=== PATIENT | female | born 1990 | race Caucasian/White ===

== ENCOUNTER 2018-08-15 08:09 | Emergency (ER) | payer OTHER ==
[~2018-08-15] VITALS: Ht 154.9 cm; Wt 63.5 kg
[~2018-08-15 08:09] MED LIST: ACID REDUCER 1150 MG PO; ALBU90OI INH; BCP'S; BUTACE PO; CIPR500 PO; CLIN300 PO; CLON.1 PO; CYCL10 PO; DIPATR PO; HYDACE5 PO; HYDACE5325 PO; IBUP600 PO; IBUP800 PO; NAPR500 PO; PHENA200 PO; PRENATAL TABLE1 EAC1 PO; PROM25 PO; RISP1 PO; RXHYD5325 PO; RXPHEN200 PO; SULTRIDS PO; TRAM50 PO; Tylenol325 MG PO; Verotin-Gr Cap1 EACH; Verotin-Gr Cap1 EACH PO; Zithromax250 MG PO; Zofran Odt4 MG SL; [UNRECOGNIZED DRUG - REMARK]
[2018-08-15] MEDS ORDERED: BUPRENORPHINE1 EAC2 (08:36)
[2018-08-15 09:34] LABS: Source, Urine Clean Catch
[2018-08-15 09:44] LABS: Bilirubin, Urine Neg (Neg); Blood, Urine 1+ (Neg); Glucose Qualitative, Urine Neg (Neg); Ketones, Urine 1+ (Neg); Leukocyte Esterase, Urine 3+ (Neg); Nitrite, Urine Neg (Neg); Protein, Urine 2+ (Neg); Specific Gravity, Urine 1.025 (1.003-1.022); Urobilinogen, Urine 1+ (Normal)
[2018-08-15 09:58] LABS: Alanine Aminotransfer (ALT/SGP 11 U/L (12-78); Albumin, Blood 3.5 g/dL (3.4-5.0); Alk Phos 59 U/L (50-136); Anion Gap 8 mmol/L (6-16); Aspartate Aminotrans (AST/SGOT 11 U/L (12-37); BASOPHILS ABSOLUTE AUTO 0.04 K/mm3 (0.00-0.23); BASOPHILS PERCENT AUTO 1 % (0-2); Bilirubin, Total 0.5 mg/dL (0.1-1.0); Blood Urea Nitrogen 9 mg/dL (8-24); Bun/Creatinine Ratio 15.1 (12.0-20.0); CO2, Blood 28 mmol/L (21-32); Calcium, Blood 8.3 mg/dL (8.5-10.1); Chloride, Blood 105 mmol/L (98-108); EOSINOPHILS ABSOLUTE AUTO 0.11 K/mm3 (0.00-0.68); EOSINOPHILS PERCENT AUTO 2 % (0-6); Globulin, Blood 3.5 g/dL (2.2-4.0); Glomerular Filtration Rate >60 (60-); Glucose, Blood 78 mg/dL (70-99); Hematocrit 32.4 % (33.0-51.0); Hemoglobin 10.8 g/dL (11.5-16.0); IMMATURE GRAN ABSOLUTE AUTO 0.02 K/mm3 (0.00-0.10); IMMATURE GRAN PERCENT AUTO 0 % (0-1); LYMPHOCYTES ABSOLUTE AUTO 2.32 K/mm3 (0.84-5.20); LYMPHOCYTES PERCENT AUTO 37 % (21-46); MONOCYTES ABSOLUTE AUTO 0.62 K/mm3 (0.16-1.47); MONOCYTES PERCENT AUTO 10 % (4-13); Mean Corpuscular HGB Conc 33.3 g/dL (31.5-36.5); Mean Corpuscular Volume 84 fL (80-100); Mean Platelet Volume 9.4 fL (9.1-12.4); NEUTROPHILS ABSOLUTE AUTO 3.22 K/mm3 (1.96-9.15); NEUTROPHILS PERCENT AUTO 51 % (41-73); Platelet Count 249 K/mm3 (150-400); Potassium, Blood 3.1 mmol/L (3.5-5.5); RDW Coefficient Variation 13.5 % (11.7-14.2); RDW Standard Deviation 41.4 fL (35.1-46.3); Red Blood Cell Count 3.86 M/mm3 (3.80-5.20); Sodium, Blood 141 mmol/L (136-145); White Blood Cell Count 6.33 K/mm3 (4.00-11.30)
[2018-08-15 10:02] LABS: Appearance, Urine Hazy (Clear); Color, Urine Yellow (P-Yellow)
[2018-08-15 10:03] LABS: Red Blood Cells, Urine 0-2 /hpf (0-2); White Blood Cells, Urine 50-100 /hpf (0-5)
[2018-08-15 10:04] LABS: Bacteria Mod /hpf; Mucus Mod (0-Heavy); Squamous Epithelial Cells Many /hpf (Few)
[2018-08-15] MEDS ORDERED: Macrobid 100 M100 MG PO (10:54)
[2018-08-15] MEDS ORDERED: Zofran4 MG PO (10:54)
[2018-08-15] MEDS ORDERED: Klor-Con M1010 MEQ PO (10:54)
== END 2018-08-15 11:26 | disposition home or self-care (01) ==
LOC: ER 08:09
PROVIDERS: Physician Assistant
DX: E87.6 Hypokalemia (principal); N39.0 Urinary tract infection, site not specified; R19.7 Diarrhea, unspecified; F32.9 Major depressive disorder, single episode, unspecified; J45.909 Unspecified asthma, uncomplicated; Z87.891 Personal history of nicotine dependence
CPT/HCPCS: 36415; 74176; 80053; 81001; 81025; 83690; 85025; 87086; 96361; 96374; 96375; 99284-25; J1885; J2405; J7030

== ENCOUNTER 2019-06-15 19:50 | Emergency (ER) | payer OTHER ==
[~2019-06-15 19:50] MED LIST changes: +BUPRENORPHINE1 EAC2; +Klor-Con M1010 MEQ PO; +Macrobid 100 M100 MG PO; +Zofran4 MG PO
== END 2019-06-15 21:26 | disposition left against medical advice (07) ==
LOC: ER 19:50
DX: Z53.21 Procedure and treatment not carried out due to patient leaving prior to being seen by health care provider (principal)

== ENCOUNTER → 2019-12-22 | Outpatient (CLI) | payer OTHER ==
[~2019-12-22] MED LIST changes: +IBUP400 PO; +Veetids 500500 MG PO
[2019-12-23 09:09] LABS: Candida species (DNA Probe) Negative (NEGATIVE); G. vaginalis (DNA Probe) Positive (NEGATIVE); T. vaginalis (DNA Probe) Positive (NEGATIVE)
== END | disposition home or self-care (01) ==
LOC: LAB SHORT 15:05 → LAB 15:05
PROVIDERS: Family Medicine
DX: L29.8 Other pruritus (principal); R30.9 Painful micturition, unspecified
CPT/HCPCS: 87086; 87480; 87510; 87660

== ENCOUNTER 2020-11-18 14:18 | Emergency (ER) | payer OTHER ==
[~2020-11-18] VITALS: Ht 154.9 cm; Wt 63.5 kg
[2020-11-18] MEDS ORDERED: Triamcinolone A15 G3 TOP (15:09)
== END 2020-11-18 15:19 | disposition home or self-care (01) ==
LOC: ER 14:18
DX: L20.9 Atopic dermatitis, unspecified (principal); Z87.891 Personal history of nicotine dependence
CPT/HCPCS: 99282

== ENCOUNTER 2021-03-02 19:26 | Emergency (ER) | payer OTHER ==
[~2021-03-02] VITALS: Ht 154.9 cm; Wt 63.5 kg
[~2021-03-02 19:26] MED LIST changes: +Triamcinolone A15 G3 TOP
[2021-03-02 20:25] LABS: Source, Urine Clean Catch
[2021-03-02 20:29] LABS: Appearance, Urine Hazy (Clear); Bilirubin, Urine Neg (Neg); Blood, Urine 2+ (Neg); Color, Urine Yellow (P-Yellow); Glucose Qualitative, Urine Neg (Neg); Ketones, Urine Neg (Neg); Leukocyte Esterase, Urine 3+ (Neg); Nitrite, Urine Pos (Neg); Protein, Urine 2+ (Neg); Urobilinogen, Urine NORM (Normal)
[2021-03-02 20:42] LABS: White Blood Cells, Urine TNTC /hpf (0-5)
[2021-03-02 20:43] LABS: Bacteria Many /hpf; Calcium Oxalate Crystals Few /hpf; Red Blood Cells, Urine 0-2 /hpf (0-2); Squamous Epithelial Cells Few /hpf (Few)
[2021-03-02] MEDS ORDERED: Vibramycin100 MG PO (21:46)
[2021-03-05 03:09] LABS: CHLAMYDIA TRACHOMATIS, NAA Negative (Negative)
== END 2021-03-02 21:47 | disposition home or self-care (01) ==
LOC: ER 19:26
PROVIDERS: Physician Assistant
DX: N39.0 Urinary tract infection, site not specified (principal); A54.9 Gonococcal infection, unspecified; A74.9 Chlamydial infection, unspecified; Z91.018 Allergy to other foods; Z87.891 Personal history of nicotine dependence
CPT/HCPCS: 81001; 81025; 87077; 87086; 87186; 87491; 87591; 96372; 99283-25; A9270; J0696

== ENCOUNTER 2021-04-18 15:54 | Emergency (ER) | payer OTHER ==
[~2021-04-18] VITALS: Ht 162.6 cm; Wt 65.8 kg
[~2021-04-18 15:54] MED LIST changes: +Vibramycin100 MG PO
[2021-04-18] MEDS ORDERED: EPIPEN0.3 MG/0.3 IM (16:49)
[2021-04-18] MEDS ORDERED: ALLEGRA ALLERGY60 MG PO (16:49)
[2021-04-18] MEDS ORDERED: Prednisone20 MG PO (16:49)
== END 2021-04-18 17:01 | disposition home or self-care (01) ==
LOC: ER 15:54
DX: T78.1XXA Other adverse food reactions, not elsewhere classified, initial encounter (principal); R06.02 Shortness of breath; F32.9 Major depressive disorder, single episode, unspecified; J45.909 Unspecified asthma, uncomplicated; Z87.891 Personal history of nicotine dependence; Z91.018 Allergy to other foods
CPT/HCPCS: 71045; 93005; 93010; 96372; 99285-25; J0171

== ENCOUNTER 2022-02-16 05:07 | Emergency (ER) | payer OTHER ==
[~2022-02-16] VITALS: Ht 157.5 cm; Wt 59.0 kg
[~2022-02-16 05:07] MED LIST changes: +ALLEGRA ALLERGY60 MG PO; +EPIPEN0.3 MG/0.3 IM; +Prednisone20 MG PO
[2022-02-16] MEDS ORDERED: NALOXONE HC1 MG/1 ML IM (10:37)
== END 2022-02-16 10:41 | disposition home or self-care (01) ==
LOC: ER 05:07
DX: T40.601A Poisoning by unspecified narcotics, accidental (unintentional), initial encounter (principal); R07.9 Chest pain, unspecified; Z87.891 Personal history of nicotine dependence
CPT/HCPCS: 36415; 93005; 93010

== ENCOUNTER 2022-03-11 16:22 | Emergency (ER) | payer OTHER ==
[~2022-03-11] VITALS: Ht 165.1 cm; Wt 63.5 kg
[~2022-03-11 16:22] MED LIST changes: +NALOXONE HC1 MG/1 ML IM
== END 2022-03-11 16:41 | disposition home or self-care (01) ==
LOC: ER 16:22
DX: F11.10 Opioid abuse, uncomplicated (principal); J45.909 Unspecified asthma, uncomplicated; Z91.018 Allergy to other foods
CPT/HCPCS: 93005; 93010

== ENCOUNTER 2023-05-20 15:57 | Emergency (ER) | payer OTHER ==
[~2023-05-20] VITALS: Ht 154.9 cm; Wt 59.0 kg
[~2023-05-20 15:57] MED LIST changes: +CEPH500 PO
[2023-05-20 16:19] VITALS: BP 127/73
[2023-05-20] MEDS ORDERED: Bactrim Ds Tab1 EACH PO (17:36)
== END 2023-05-20 17:48 | disposition home or self-care (01) ==
LOC: ER 15:57
DX: L02.415 Cutaneous abscess of right lower limb (principal); J02.9 Acute pharyngitis, unspecified; J45.909 Unspecified asthma, uncomplicated; Z87.891 Personal history of nicotine dependence; Z91.018 Allergy to other foods; Z79.899 Other long term (current) drug therapy
CPT/HCPCS: 87081; 87430; 99283; A9270

== ENCOUNTER 2023-05-23 02:42 | Emergency (ER) | payer OTHER ==
[~2023-05-23] VITALS: Ht 154.9 cm; Wt 65.8 kg
[~2023-05-23 02:42] MED LIST changes: +Bactrim Ds Tab1 EACH PO
[2023-05-23 06:17] LABS: BASOPHILS ABSOLUTE AUTO 0.03 K/mm3 (0.00-0.23); BASOPHILS PERCENT AUTO 0 % (0-2); EOSINOPHILS ABSOLUTE AUTO 0.09 K/mm3 (0.00-0.68); EOSINOPHILS PERCENT AUTO 1 % (0-6); Hematocrit 32.4 % (33.0-51.0); Hemoglobin 10.8 g/dL (11.5-16.0); IMMATURE GRAN ABSOLUTE AUTO 0.03 K/mm3 (0.00-0.10); IMMATURE GRAN PERCENT AUTO 0 % (0-1); LYMPHOCYTES ABSOLUTE AUTO 2.14 K/mm3 (0.84-5.20); LYMPHOCYTES PERCENT AUTO 20 % (21-46); MONOCYTES PERCENT AUTO 9 % (4-13); Mean Corpuscular HGB 27.8 pg (26.0-34.0); Mean Corpuscular HGB Conc 33.3 g/dL (31.5-36.5); Mean Corpuscular Volume 84 fL (80-100); Mean Platelet Volume 8.9 fL (9.1-12.4); NEUTROPHILS ABSOLUTE AUTO 7.44 K/mm3 (1.96-9.15); NEUTROPHILS PERCENT AUTO 70 % (41-73); Platelet Count 379 K/mm3 (150-400); RDW Coefficient Variation 13.6 % (11.7-14.2); RDW Standard Deviation 41.5 fL (35.1-46.3); Red Blood Cell Count 3.88 M/mm3 (3.80-5.20); White Blood Cell Count 10.63 K/mm3 (4.00-11.30)
[2023-05-23 06:41] LABS: Albumin, Blood 3.3 g/dL (3.4-5.0); Albumin/Globulin Ratio 0.8 (0.8-1.8); Bilirubin, Total 0.3 mg/dL (0.1-1.0); Bun/Creatinine Ratio 4.2 (12.0-20.0); Calcium, Blood 8.7 mg/dL (8.5-10.1); Creatinine, Blood 0.72 mg/dL (0.40-1.00); Globulin, Blood 4.1 g/dL (2.2-4.0); Potassium, Blood 2.9 mmol/L (3.5-5.5); Total Protein, Blood 7.4 g/dL (6.4-8.2)
[2023-05-23] MEDS ORDERED: CEPH500 PO (07:12)
[2023-05-23] MEDS ORDERED: SULTRIDS PO (07:12)
[2023-05-23 07:26] VITALS: BP 119/62
== END 2023-05-23 07:53 | disposition home or self-care (01) ==
LOC: ER 02:42
PROVIDERS: Emergency Medicine
DX: L03.115 Cellulitis of right lower limb (principal); L02.415 Cutaneous abscess of right lower limb; E86.0 Dehydration; E87.6 Hypokalemia; Z23 Encounter for immunization; J45.909 Unspecified asthma, uncomplicated; Z91.018 Allergy to other foods; Z87.891 Personal history of nicotine dependence
CPT/HCPCS: 73552; 80053; 85025; 90471; 90715; 96361; 96374; 96375; 99283-25; A9270; J0696; J1885; J7030

== ENCOUNTER → 2024-04-29 | Outpatient (CLI) | payer OTHER ==
[2024-05-01 17:52] LABS: APTIMA MEDIA TYPE Urine; C. TRACHOMATIS BY TMA Negative (Negative); N. GONORRHOEAE BY TMA Negative (Negative); SPECIMEN SOURCE Urine
[2024-05-03 11:29] LABS: HEPATITIS B SURFACE ANTIGEN Negative (Negative)
[2024-05-03 11:30] LABS: HIV 1,2 COMBO ANTIGEN/ANTIBODY Negative (Negative)
[2024-05-03 13:22] LABS: HEPATITIS C AB CIA INTERP Low Pos (Negative); HEPATITIS C ANTIBODY CIA INDEX 10.19 IV
[2024-05-04 19:18] LABS: HCV QNT BY NAAT (IU/ML) Not Detected; HCV QNT BY NAAT (LOG IU/ML) Not Detected; HCV QNT BY NAAT INTERP Not Detected (Not Detected)
== END | disposition home or self-care (01) ==
LOC: LAB 16:09 → LAB SHORT 16:09
PROVIDERS: Registered Nurse Community Health
DX: O28.8 Other abnormal findings on antenatal screening of mother (principal)
CPT/HCPCS: 84443; 86803; 87077; 87086; 87186; 87340; 87389; 87491; 87522; 87591

== ENCOUNTER → 2024-06-15 | Outpatient (CLI) | payer OTHER | LOC: LAB SHORT 15:12 → LAB 15:12 | DX: N39.0 Urinary tract infection, site not specified (principal); N89.8 Other specified noninflammatory disorders of vagina; R31.9 Hematuria, unspecified | CPT/HCPCS: 87070; 87077; 87086; 87186; 87205 ==

== ENCOUNTER → 2024-08-10 | Outpatient (CLI) | payer OTHER | END | disposition home or self-care (01) | LOC: LAB 17:47 → LAB SHORT 17:47 | DX: N89.8 Other specified noninflammatory disorders of vagina (principal) | CPT/HCPCS: 87070; 87205 ==

== ENCOUNTER → 2024-12-07 | Outpatient (CLI) | payer OTHER | LOC: LAB 19:02 → LAB SHORT 19:02 | DX: N89.8 Other specified noninflammatory disorders of vagina (principal) ==

== ENCOUNTER → 2025-03-16 | Outpatient (CLI) | payer OTHER ==
[2025-03-16 20:24] LABS: Candida Group, PCR NOT DETECTED (NOT DETECT); Candida glabrata-krusei, PCR NOT DETECTED (NOT DETECT)
[2025-03-16 20:55] LABS: Chlamydia Trachomatis Vaginal NOT DETECTED (NOT DETECT); Neisseria Gonorrhoea Vaginal NOT DETECTED (NOT DETECT)
[2025-03-16 21:08] LABS: Bacterial Vaginosis PCR Positive (NEGATIVE)
== END ==
LOC: LAB 16:35 → LAB SHORT 16:35
DX: Z11.3 Encounter for screening for infections with a predominantly sexual mode of transmission (principal)
CPT/HCPCS: 81515; 87491; 87591